=== PATIENT | male | born 1950 | race Caucasian/White ===

== ENCOUNTER 2017-08-22 22:31 | Emergency (ER) | payer BC | END 2017-08-22 22:55 | disposition home or self-care (01) | LOC: ER 22:31 | DX: T63.301A Toxic effect of unspecified spider venom, accidental (unintentional), initial encounter (principal); M79.89 Other specified soft tissue disorders; E78.00 Pure hypercholesterolemia, unspecified; Y92.89 Other specified places as the place of occurrence of the external cause | CPT/HCPCS: 99283 ==

== ENCOUNTER → 2018-01-10 | Outpatient (CLI) | payer BC | END | disposition home or self-care (01) | LOC: RAD 08:18 | DX: M48.02 Spinal stenosis, cervical region (principal); M12.88 Other specific arthropathies, not elsewhere classified, other specified site | CPT/HCPCS: 72040; 73030 ==

== ENCOUNTER 2019-07-06 20:01 | Inpatient (IN) | payer BC ==
[~2019-07-06] VITALS: Ht 185.4 cm; Wt 105.0 kg
[~2019-07-06 20:01] MED LIST: SULF1TAB24 PO
[2019-07-06 20:47] LABS: BASO # 0.1 x10^3/uL (0.0-0.2); BASO % 1 % (0-3); EOS % 1 % (0-3); HEMATOCRIT 45.2 % (39.0-53.0); HEMOGLOBIN 15.4 g/dL (13.0-17.5); LYMPH # 1.2 x10^3/uL (1.0-4.8); LYMPH % 14 % (24-48); MEAN CORPUSCULAR HEMOGLOBIN 29 pg (25-35); MEAN CORPUSCULAR HGB CONC 34 g/dL (31-37); MEAN CORPUSCULAR VOLUME 86 fL (79-100); MONO # 0.5 x10^3/uL (0.0-1.1); MONO % 6 % (0-9); NEUT # 6.7 x10^3/uL (1.8-7.7); NEUT % 80 % (31-73); PLATELET COUNT 199 x10^3/uL (140-400); RED BLOOD COUNT 5.25 x10^6/uL (4.30-5.70); RED CELL DISTRIBUTION WIDTH 13.4 % (11.5-14.5); WHITE BLOOD COUNT 8.5 x10^3/uL (4.0-11.0)
[2019-07-06 20:57] LABS: CALCIUM 8.8 mg/dL (8.5-10.1); CREATININE 0.9 mg/dL (0.7-1.3); GFR 83.9; POTASSIUM 4.2 mmol/L (3.5-5.1)
[2019-07-06 20:58] LABS: PROTHROMBIN TIME PATIENT 12.4 SEC (11.7-14.0)
[2019-07-06 21:02] LABS: ALBUMIN 3.7 g/dL (3.4-5.0); ALBUMIN/GLOBULIN RATIO 1.1 (1.0-1.7); TOTAL BILIRUBIN 0.4 mg/dL (0.2-1.0)
--- NOTE | 2019-07-06 21:34 | RAD ---
PQRS Compliance statement: One or more of the following individualized dose reduction techniques were utilized for this examination: 1. Automated exposure control. 2. Adjustment of the mA and/or kV according to patient size. 3. Use of iterative reconstruction technique. Indication: Altered mental status TECHNIQUE: CT head without IV contrast COMPARISON: None FINDINGS: Moderate sized area of encephalomalacia is seen in the right frontal lobe approximately measuring 4.8 x 5.2 cm. Small area of encephalomalacia in the temporal lobe measuring approximately 4.6 x 2.4 cm. No pathologic extra-axial or intra-axial fluid collection. The ventricles and basal cisterns are within normal limits. No acute intracranial bleed. Orbits are within normal limits. No large scalp hematoma. No suspicious calvarial lesion. Visualized paranasal sinuses and mastoid air cells are clear. 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 Clinically correlate with history. If concern for acute ischemic stroke is high, please consider MRI brain. No acute intracranial bleed. Electronically signed by: Carlitos Caputo DO (07/06/2019 9:31 PM) [facility]
[2019-07-06 23:00] LABS: BILIRUBIN,URINE NEGATIVE (NEG); CLARITY,URINE CLEAR; COLOR,URINE YELLOW; NITRITE,URINE NEGATIVE (NEG); PH,URINE 7.5; PROTEIN,URINE NEGATIVE (NEG-TRACE); UROBILINOGEN,URINE 0.2 mg/dL (0.2 mg/dL)
[2019-07-06 23:05] LABS: BACTERIA,URINE 0 /HPF (0-FEW); RBC,URINE 0 /HPF (0-2); WBC,URINE OCC /HPF (0-4)
--- NOTE | 2019-07-06 23:12 | PHYS DOC ---
Past Medical History Past Medical History: High Cholesterol Past Surgical History: No Surgical History Alcohol Use: None Drug Use: None Adult General Chief Complaint Chief Complaint: HYPERTENSION HPI HPI Patient is a 68 year old was brought here by his for evaluation due to a period of confusion today. His said he was in the closet working on something and when he was done, he came out, he was acting very confused, was talking with her but he did not make any sense. He did not remember what he was doing earlier. EMS was called, they checked him out and he was doing ok but his blood pressure was high so his brought him here for evaluation. Patient denied any history of DM, HTN OR CVA or CAD. He denied any headache or weakness or numbness anywhere at this time. His said he is doing much better now. All other ROS is negative unless otherwise noted in HPI Review of Systems Review of Systems See above Allergies Allergies Allergies Coded Allergies Type Severity Reaction Last Updated Verified No Known Drug Allergies 07/06/19 No Physical Exam Physical Exam See above Constitutional: Well developed, well nourished, no acute distress, non-toxic appearance. [] HENT: Normocephalic, atraumatic, bilateral external ears normal, oropharynx moist, no oral exudates, nose normal. [] Eyes: PERRLA, EOMI, conjunctiva normal, no discharge. [] Neck: Normal range of motion, no tenderness, supple, no stridor. [] Cardiovascular:Heart rate regular rhythm, no murmur [] Lungs & Thorax: Bilateral breath sounds clear to auscultation [] Abdomen: Bowel sounds normal, soft, no tenderness, no masses, no pulsatile masses. [] Skin: Warm, dry, no erythema, no rash. [] Back: No tenderness, no CVA tenderness. [] Extremities: No tenderness, no cyanosis, no clubbing, ROM intact, no edema. [] Neurologic: Alert and oriented X 3, normal motor function, normal sensory function, no focal deficits noted. [] Psychologic: Affect normal, judgement normal, mood normal. [] Current Patient Data Vital Signs Vital Signs Date Time Temp Pulse Resp B/P (MAP) Pulse Ox O2 Delivery O2 Flow Rate FiO2 07/06/19 23:51 99 96 07/06/19 20:10 98.0 16 151/105 (120) 98.0 Lab Values Laboratory Tests Test 07/06/19 20:24 07/06/19 20:40 07/06/19 22:50 Glucose (Fingerstick) 106 mg/dL (70-99) H White Blood Count 8.5 x10^3/uL (4.0-11.0) Red Blood Count 5.25 x10^6/uL (4.30-5.70) Hemoglobin 15.4 g/dL (13.0-17.5) Hematocrit 45.2 % (39.0-53.0) Mean Corpuscular Volume 86 fL (79-100) Mean Corpuscular Hemoglobin 29 pg (25-35) Mean Corpuscular Hemoglobin Concent 34 g/dL (31-37) Red Cell Distribution Width 13.4 % (11.5-14.5) Platelet Count 199 x10^3/uL (140-400) Neutrophils (%) (Auto) 80 % (31-73) H Lymphocytes (%) (Auto) 14 % (24-48) L Monocytes (%) (Auto) 6 % (0-9) Eosinophils (%) (Auto) 1 % (0-3) Basophils (%) (Auto) 1 % (0-3) Neutrophils # (Auto) 6.7 x10^3/uL (1.8-7.7) Lymphocytes # (Auto) 1.2 x10^3/uL (1.0-4.8) Monocytes # (Auto) 0.5 x10^3/uL (0.0-1.1) Eosinophils # (Auto) 0.0 x10^3/uL (0.0-0.7) Basophils # (Auto) 0.1 x10^3/uL (0.0-0.2) Prothrombin Time 12.4 SEC (11.7-14.0) Prothrombin Time INR 1.0 (0.8-1.1) Activated Partial Thromboplast Time 27 SEC (24-38) Sodium Level 136 mmol/L (136-145) Potassium Level 4.2 mmol/L (3.5-5.1) Chloride Level 101 mmol/L (98-107) Carbon Dioxide Level 28 mmol/L (21-32) Anion Gap 7 (6-14) Blood Urea Nitrogen 14 mg/dL (8-26) Creatinine 0.9 mg/dL (0.7-1.3) Estimated GFR (Cockcroft-Gault) 83.9 BUN/Creatinine Ratio 16 (6-20) Glucose Level 115 mg/dL (70-99) H Calcium Level 8.8 mg/dL (8.5-10.1) Magnesium Level 2.0 mg/dL (1.8-2.4) Total Bilirubin 0.4 mg/dL (0.2-1.0) Aspartate Amino Transferase (AST) 35 U/L (15-37) Alanine Aminotransferase (ALT) 57 U/L (16-63) Alkaline Phosphatase 50 U/L (46-116) Troponin I Quantitative 0.124 ng/mL (0.000-0.055) SR-Ssw-F-Type Natriuretic Peptide 35 pg/mL (0-124) Total Protein 7.0 g/dL (6.4-8.2) Albumin 3.7 g/dL (3.4-5.0) Albumin/Globulin Ratio 1.1 (1.0-1.7) Urine Collection Type Unknown Urine Color Yellow Urine Clarity Clear Urine pH 7.5 Urine Specific [place] 1.010 Urine Protein Negative mg/dL (NEG-TRACE) Urine Glucose (UA) Negative mg/dL (NEG) Urine Ketones (Stick) Negative mg/dL (NEG) Urine Blood Negative (NEG) Urine Nitrite Negative (NEG) Urine Bilirubin Negative (NEG) Urine Urobilinogen Dipstick 0.2 mg/dL (0.2 mg/dL) Urine Leukocyte Esterase Negative (NEG) Urine RBC 0 /HPF (0-2) Urine WBC Occ /HPF (0-4) Urine Bacteria 0 /HPF (0-FEW) Urine Mucus Slight /LPF Urine Opiates Screen Neg (NEG) Urine Methadone Screen Neg (NEG) Urine Barbiturates Neg (NEG) Urine Phencyclidine Screen Neg (NEG) Urine Amphetamine/Methamphetamine Neg (NEG) Urine Benzodiazepines Screen Neg (NEG) Urine Cocaine Screen Neg (NEG) Urine Cannabinoids Screen Neg (NEG) Urine Ethyl Alcohol Neg (NEG) Laboratory Tests 07/06/19 20:40 Laboratory Tests 07/06/19 20:40 EKG EKG [] Radiology/Procedures Radiology/Procedures EKG was read by this physician at 2033, rate of 97 BPM, NO STEMI, NSR. [] [facility] [address] [place] [address] IMAGING REPORT Signed PATIENT: LUCRETIA PLUNKETTOUNT: [id number] : 1950 LOCATION: ER AGE: 68 SEX: M EXAM STATUS: REG ER ORD. PHYSICIAN: MARIA EUGENIA MUSA DO REASON: ALTERED MENTAL STATUS PROCEDURE: CT HEAD WO CONTRAST PQRS Compliance statement: One or more of the following individualized dose reduction techniques were utilized for this examination: 1. Automated exposure control. 2. Adjustment of the mA and/or kV according to patient size. 3. Use of iterative reconstruction technique. Indication: Altered mental status TECHNIQUE: CT head without IV contrast COMPARISON: None FINDINGS: Moderate sized area of encephalomalacia is seen in the right frontal lobe approximately measuring 4.8 x 5.2 cm. Small area of encephalomalacia in the temporal lobe measuring approximately 4.6 x 2.4 cm. No pathologic extra-axial or intra-axial fluid collection. The ventricles and basal cisterns are within normal limits. No acute intracranial bleed. Orbits are within normal limits. No large scalp hematoma. No suspicious calvarial lesion. Visualized paranasal sinuses and mastoid air cells are clear. 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 Clinically correlate with history. If concern for acute ischemic stroke is high, please consider MRI brain. No acute intracranial bleed. Electronically signed by: Carlitos Caputo DO (07/06/2019 9:31 PM) [facility] DICTATED and SIGNED BY: CARLITOS CAPUTO DO DATE: 07/06/192130 Course & Med Decision Making Course & Med Decision Making Pertinent Labs and Imaging studies reviewed. (See chart for details) Patient felt much better now, no headache, no chest pain, no shortness of air, no weakness or numbness anywhere. Will admit him for TIA WORK UP AND DUE TO NEW ONSET HTN. Dragon Disclaimer Dragon Disclaimer This electronic medical record was generated, in whole or in part, using a voice recognition dictation system. Departure Departure Impression: Primary Impression: TIA (transient ischemic attack) Additional Impression: HTN (hypertension) Disposition: 09 ADMITTED INPATIENT Admitting Physician: PATIENCE (Dr. CHRISTOMPHER RIFFEL) Condition: IMPROVED Referrals: ZENY NARANJO MD (PCP) Problem Qualifiers MARIA EUGENIA MUSA DO Jul 06, 2019 23:12
[2019-07-06 23:14] LABS: BARBITURATES NEG (NEG); BENZODIAZEPINES NEG (NEG); CANNABINOIDS NEG (NEG); COCAINE NEG (NEG); METHADONE NEG (NEG); OPIATES NEG (NEG); PHENCYCLIDINE NEG (NEG)
[2019-07-06 23:20] LABS: AMPHETAMINE/METHAMPHETAMINE NEG (NEG)
[2019-07-07] MEDS ORDERED: ASPIRIN 325 MG TABLET PO ONE (00:30)
[2019-07-07] MEDS ORDERED: METOPROLOL TART IMMED RELEASE 25 MG TABLET. PO ONE (00:30)
--- NOTE | 2019-07-07 01:32 | NUR ---
PT ADMITTED TO 254 WITH TIA AND HTN. ADMISSION ASSESSMENT COMPLETE, NIHSS-2, PT ALERT THOUGHT PROCESS APPEARS SLOW. CALL LIGHT IN REACH WILL CONT TO MONITOR PT SAFETY AND STATUS. PMRN
[2019-07-07 01:45] VITALS: BP 151/94
[2019-07-07 03:06] VITALS: BP 162/90
--- NOTE | 2019-07-07 06:31 | NUR ---
CALLED CONSULTS FOR DR YU AND DR AMOR, AWAITING RETURN CALL. PMRN
[2019-07-07 07:00] VITALS: BP 132/76
[2019-07-07] MEDS ORDERED: ZOCOR (07:21)
[2019-07-07] MEDS ORDERED: ASPI-630 PO (07:21)
--- NOTE | 2019-07-07 07:30 | EKG ---
[facility] [address] [place] [address] Test Date: 2019-07-06 Test Time: 20:31:09 Pat Name: MAN PLUNKETT Department: Room: Gender: M Supply Person: : 1950 Requested By: MARIA EUGENIA MUSA Order Number: [id number] Reading MD: Measurements Intervals [place] Rate: 97 P: 51 OK: 206 QRS: 0 QRSD: 94 T: 25 QT: 364 QTc: 466 Interpretive Statements SINUS RHYTHM PROLONGED OK INTERVAL LEFTWARD AXIS ABNORMAL ECG No previous ECG available for comparison
--- NOTE | 2019-07-07 09:07 | PDOC1 ---
History and Physical Date of Admission Date of Admission DATE: 07/07/19 TIME: 09:06 Identification/Chief Complaint Chief Complaint TIA sx Source Source: Patient History of Present Illness History of Present Illness Mr Matthews is a 68 yo w/ PMHx BPH, HLD was brought here by his for evaluation due to a period of confusion 07/06/19 His said he was in the closet working on something and when he was done, he came out, he was acting very confused, was talking with her but he did not make any sense. He did not remember what he was doing earlier. EMS was called, they checked him out and he was doing ok but his blood pressure was high so his brought him here for evaluation. Patient denied any history of DM, HTN OR CVA or CAD. He denied any headache or weakness or numbness anywhere at this time. His said he is doing much better now. He notes he was in the closet spraying RAID bug spray with the door closed. CT head revealed concern for prior right frontal and temporal encephalomalacia, but he and his note no hx of CVA previously, so he was admitted for further care with neurology consultation, pending MRI. Given his NIH of 0 there was no tPA administered Past Medical History Cardiovascular: No pertinent hx, Hyperlipidemia Pulmonary: No pertinent hx CENTRAL NERVOUS SYSTEM: CVA, TIA GI: No pertinent hx Heme/Onc: No pertinent hx Hepatobiliary: No pertinent hx Psych: No pertinent hx Rheumatologic: No pertinent hx Infectious disease: No pertinent hx ENT: No pertinent hx Renal/: Benign prostatic enlarg. Endocrine: No pertinent hx Dermatology: No pertinent hx Past Surgical History Past Surgical History: No pertinent history Family History Family History: High Cholestrol, Hypertension Social History Smoke: No ALCOHOL: none Drugs: None Current Problem List Problem List Problems Medical Problems: (1) HTN (hypertension) Status: Acute (2) TIA (transient ischemic attack) Status: Acute Current Medications Current Medications Current Medications Aspirin (Benny Aspirin) 325 mg 1X ONCE PO Last administered on 07/07/19at 00:48; Start 07/07/19 at 00:30; Stop 07/07/19 at 00:31; Status DC Metoprolol Tartrate (Lopressor) 25 mg 1X ONCE PO Last administered on 07/07/19at 00:50; Start 07/07/19 at 00:30; Stop 07/07/19 at 00:31; Status DC Active Scripts Active Bactrim Ds Tablet (Sulfamethoxazole/Trimethoprim) 1 Each Tablet 1 Tab PO BID Reported [Zocor] Aspirin 81 Mg Tab.chew 81 Mg PO DAILY Allergies Allergies: Coded Allergies: No Known Drug Allergies (Unverified , 07/06/19) ROS General: No: Chills, Night Sweats, Fatigue, Malaise, Appetite, Other PSYCHOLOGICAL ROS: No: Anxiety, Behavioral Disorder, Concentration difficultie, Decreased libido, Depression, Disorientation, Hallucinations, Hostility, Irritablity, Memory difficulties, Mood Swings, Obsessive thoughts, Physical abuse, Sexual abuse, Sleep disturbances, Suicidal ideation, Other Eyes: No Blurry vision, No Decreased vision, No Double vision, No Dry eyes, No Excessive tearing, No Eye Pain, No Itchy Eyes, No Loss of vision, No Photophobia, No Scotomata, No Uses contacts, No Uses glasses, No Other HEENT: No: Heacaches, Visual Changes, Hearing change, Nasal congestion, Nasal discharge, Oral lesions, Sinus pain, Sore Throat, Epistaxis, Sneezing, Snoring, Tinnitus, Vertigo, Vocal changes, Other ALLERGY AND IMMUNOLOGY: No: Hives, Insect Bite Sensitivity, Itchy/Watery Eyes, Nasal Congestion, Post Nasal Drip, Seasonal Allergies, Other Hematological and Lymphatic: No: Bleeding Problems, Blood Clots, Blood Transfusions, Brusing, Night Sweats, Pallor, Swollen Lymph Nodes, Other ENDOCRINE: No: Breast Changes, Galactorrhea, Hair Pattern Changes, Hot Flashes, Malaise/lethargy, Mood Swings, Palpitations, Polydipsia/polyuria, Skin Changes, Temperature Intolerance, Unexpected Weight Changes, Other Breast: No New/Changing Breast Lumps, No Nipple changes, No Nipple discharge, No Other Respiratory: No: Cough, Hemoptysis, Orthopnea, Pleuritic Pain, Shortness of breath, SOB with excertion, Sputum Changes, Stridor, Tachypnea, Wheezing, Other Cardiovascular: No Chest Pain, No Palpitations, No Orthopnea, No Paroxysmal Noc. Dyspnea, No Edema, No Lt Headedness, No Other Gastrointestinal: No Nausea, No Vomiting, No Abdominal Pain, No Diarrhea, No Constipation, No Melena, No Hematochezia, No Other Genitourinary: No Dysuria, No Frequency, No Incontinence, No Hematuria, No Retention, No Discharge, No Urgency, No Pain, No Flank Pain, No Other, No , No , No , No , No , No , No Musculoskeletal: No Gait Disturbance, No Joint Pain, No Joint Stiffness, No Joint Swelling, No Muscle Pain, No Muscular Weakness, No Pain In:, No Swelling In:, No Other Neurological: No Behavorial Changes, No Bowel/Bladder ControlChng, No Confusion, No Dizziness, No Gait Disturbance, No Headaches, No Impaired Coord/balance, No Memory Loss, No Numbness/Tingling, No Seizures, No Speech Problems, No Tremors, No Visual Changes, No Weakness, No Other Skin: No Dry Skin, No Eczema, No Hair Changes, No Lumps, No Mole Changes, No Mottling, No Nail Changes, No Pruritus, No Rash, No Skin Lesion Changes, No Other, No Acne Physical Exam General: Alert, Oriented X3, Cooperative, No acute distress HEENT: Atraumatic, PERRLA, EOMI, Mucous membr. moist/pink Lungs: Clear to auscultation, Normal air movement Heart: S1S2, RRR, no thrills, no rubs, no gallops, no murmurs Abdomen: Normal bowel sounds, Soft, No tenderness, No hepatosplenomegaly, No masses Rectal Exam: not examined Extremities: No clubbing, No cyanosis, No edema, Normal pulses, No tenderness/swelling Skin: No rashes, No breakdown, No significant lesion Neuro: Normal gait, Normal speech, Strength at 5/5 X4 ext, Normal tone, Sensation intact, Cranial nerves 3-12 NL, Reflexes 2+ Psych/Mental Status: Mental status NL, Mood NL Vitals Vitals Vital Signs Date Time Temp Pulse Resp B/P (MAP) Pulse Ox O2 Delivery O2 Flow Rate FiO2 07/07/19 07:00 97.6 99 20 132/76 (94) 91 Room Air 97.6 Labs Labs Laboratory Tests Test 07/06/19 20:24 07/06/19 20:40 07/06/19 22:50 07/07/19 03:30 Glucose (Fingerstick) 106 mg/dL (70-99) White Blood Count 8.5 x10^3/uL (4.0-11.0) Red Blood Count 5.25 x10^6/uL (4.30-5.70) Hemoglobin 15.4 g/dL (13.0-17.5) Hematocrit 45.2 % (39.0-53.0) Mean Corpuscular Volume 86 fL (79-100) Mean Corpuscular Hemoglobin 29 pg (25-35) Mean Corpuscular Hemoglobin Concent 34 g/dL (31-37) Red Cell Distribution Width 13.4 % (11.5-14.5) Platelet Count 199 x10^3/uL (140-400) Neutrophils (%) (Auto) 80 % (31-73) Lymphocytes (%) (Auto) 14 % (24-48) Monocytes (%) (Auto) 6 % (0-9) Eosinophils (%) (Auto) 1 % (0-3) Basophils (%) (Auto) 1 % (0-3) Neutrophils # (Auto) 6.7 x10^3/uL (1.8-7.7) Lymphocytes # (Auto) 1.2 x10^3/uL (1.0-4.8) Monocytes # (Auto) 0.5 x10^3/uL (0.0-1.1) Eosinophils # (Auto) 0.0 x10^3/uL (0.0-0.7) Basophils # (Auto) 0.1 x10^3/uL (0.0-0.2) Prothrombin Time 12.4 SEC (11.7-14.0) Prothromb Time International Ratio 1.0 (0.8-1.1) Activated Partial Thromboplast Time 27 SEC (24-38) Sodium Level 136 mmol/L (136-145) Potassium Level 4.2 mmol/L (3.5-5.1) Chloride Level 101 mmol/L (98-107) Carbon Dioxide Level 28 mmol/L (21-32) Anion Gap 7 (6-14) Blood Urea Nitrogen 14 mg/dL (8-26) Creatinine 0.9 mg/dL (0.7-1.3) Estimated GFR (Cockcroft-Gault) 83.9 BUN/Creatinine Ratio 16 (6-20) Glucose Level 115 mg/dL (70-99) Calcium Level 8.8 mg/dL (8.5-10.1) Magnesium Level 2.0 mg/dL (1.8-2.4) Total Bilirubin 0.4 mg/dL (0.2-1.0) Aspartate Amino Transf (AST/SGOT) 35 U/L (15-37) Alanine Aminotransferase (ALT/SGPT) 57 U/L (16-63) Alkaline Phosphatase 50 U/L (46-116) Troponin I Quantitative 0.124 ng/mL (0.000-0.055) 0.134 ng/mL (0.000-0.055) MX-Ofi-K-Type Natriuretic Peptide 35 pg/mL (0-124) Total Protein 7.0 g/dL (6.4-8.2) Albumin 3.7 g/dL (3.4-5.0) Albumin/Globulin Ratio 1.1 (1.0-1.7) Urine Collection Type Unknown Urine Color Yellow Urine Clarity Clear Urine pH 7.5 Urine Specific [place] 1.010 Urine Protein Negative mg/dL (NEG-TRACE) Urine Glucose (UA) Negative mg/dL (NEG) Urine Ketones (Stick) Negative mg/dL (NEG) Urine Blood Negative (NEG) Urine Nitrite Negative (NEG) Urine Bilirubin Negative (NEG) Urine Urobilinogen Dipstick 0.2 mg/dL (0.2 mg/dL) Urine Leukocyte Esterase Negative (NEG) Urine RBC 0 /HPF (0-2) Urine WBC Occ /HPF (0-4) Urine Bacteria 0 /HPF (0-FEW) Urine Mucus Slight /LPF Urine Opiates Screen Neg (NEG) Urine Methadone Screen Neg (NEG) Urine Barbiturates Neg (NEG) Urine Phencyclidine Screen Neg (NEG) Urine Amphetamine/Methamphetamine Neg (NEG) Urine Benzodiazepines Screen Neg (NEG) Urine Cocaine Screen Neg (NEG) Urine Cannabinoids Screen Neg (NEG) Urine Ethyl Alcohol Neg (NEG) Thyroid Stimulating Hormone (TSH) 4.009 uIU/mL (0.358-3.74) Laboratory Tests Test 07/06/19 20:24 07/06/19 20:40 07/06/19 22:50 07/07/19 03:30 Glucose (Fingerstick) 106 mg/dL (70-99) White Blood Count 8.5 x10^3/uL (4.0-11.0) Red Blood Count 5.25 x10^6/uL (4.30-5.70) Hemoglobin 15.4 g/dL (13.0-17.5) Hematocrit 45.2 % (39.0-53.0) Mean Corpuscular Volume 86 fL (79-100) Mean Corpuscular Hemoglobin 29 pg (25-35) Mean Corpuscular Hemoglobin Concent 34 g/dL (31-37) Red Cell Distribution Width 13.4 % (11.5-14.5) Platelet Count 199 x10^3/uL (140-400) Neutrophils (%) (Auto) 80 % (31-73) Lymphocytes (%) (Auto) 14 % (24-48) Monocytes (%) (Auto) 6 % (0-9) Eosinophils (%) (Auto) 1 % (0-3) Basophils (%) (Auto) 1 % (0-3) Neutrophils # (Auto) 6.7 x10^3/uL (1.8-7.7) Lymphocytes # (Auto) 1.2 x10^3/uL (1.0-4.8) Monocytes # (Auto) 0.5 x10^3/uL (0.0-1.1) Eosinophils # (Auto) 0.0 x10^3/uL (0.0-0.7) Basophils # (Auto) 0.1 x10^3/uL (0.0-0.2) Prothrombin Time 12.4 SEC (11.7-14.0) Prothromb Time International Ratio 1.0 (0.8-1.1) Activated Partial Thromboplast Time 27 SEC (24-38) Sodium Level 136 mmol/L (136-145) Potassium Level 4.2 mmol/L (3.5-5.1) Chloride Level 101 mmol/L (98-107) Carbon Dioxide Level 28 mmol/L (21-32) Anion Gap 7 (6-14) Blood Urea Nitrogen 14 mg/dL (8-26) Creatinine 0.9 mg/dL (0.7-1.3) Estimated GFR (Cockcroft-Gault) 83.9 BUN/Creatinine Ratio 16 (6-20) Glucose Level 115 mg/dL (70-99) Calcium Level 8.8 mg/dL (8.5-10.1) Magnesium Level 2.0 mg/dL (1.8-2.4) Total Bilirubin 0.4 mg/dL (0.2-1.0) Aspartate Amino Transf (AST/SGOT) 35 U/L (15-37) Alanine Aminotransferase (ALT/SGPT) 57 U/L (16-63) Alkaline Phosphatase 50 U/L (46-116) Troponin I Quantitative 0.124 ng/mL (0.000-0.055) 0.134 ng/mL (0.000-0.055) LU-Dyt-E-Type Natriuretic Peptide 35 pg/mL (0-124) Total Protein 7.0 g/dL (6.4-8.2) Albumin 3.7 g/dL (3.4-5.0) Albumin/Globulin Ratio 1.1 (1.0-1.7) Urine Collection Type Unknown Urine Color Yellow Urine Clarity Clear Urine pH 7.5 Urine Specific [place] 1.010 Urine Protein Negative mg/dL (NEG-TRACE) Urine Glucose (UA) Negative mg/dL (NEG) Urine Ketones (Stick) Negative mg/dL (NEG) Urine Blood Negative (NEG) Urine Nitrite Negative (NEG) Urine Bilirubin Negative (NEG) Urine Urobilinogen Dipstick 0.2 mg/dL (0.2 mg/dL) Urine Leukocyte Esterase Negative (NEG) Urine RBC 0 /HPF (0-2) Urine WBC Occ /HPF (0-4) Urine Bacteria 0 /HPF (0-FEW) Urine Mucus Slight /LPF Urine Opiates Screen Neg (NEG) Urine Methadone Screen Neg (NEG) Urine Barbiturates Neg (NEG) Urine Phencyclidine Screen Neg (NEG) Urine Amphetamine/Methamphetamine Neg (NEG) Urine Benzodiazepines Screen Neg (NEG) Urine Cocaine Screen Neg (NEG) Urine Cannabinoids Screen Neg (NEG) Urine Ethyl Alcohol Neg (NEG) Thyroid Stimulating Hormone (TSH) 4.009 uIU/mL (0.358-3.74) Images Images CT head - Moderate sized area of encephalomalacia is seen in the right frontal lobe approximately measuring 4.8 x 5.2 cm. Small area of encephalomalacia in the temporal lobe measuring approximately 4.6 x 2.4 cm. No pathologic extra-axial or intra-axial fluid collection. The ventricles and basal cisterns are within normal limits. No acute intracranial bleed. Orbits are within normal limits. No large scalp hematoma. No suspicious calvarial lesion. Visualized paranasal sinuses and mastoid air cells are clear. 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 Clinically correlate with history. If concern for acute ischemic stroke is high, please consider MRI brain. No acute intracranial bleed. MRI - No acute infarct. No intracranial hemorrhage. No mass effect. Right frontal and anterior temporal encephalomalacia with adjacent gliosis. Mild global brain parenchymal volume loss. Moderate cerebellar volume loss. Additional punctate foci of T/FLAIR hyperintensities within the hemispheric white matter, likely within normal range for age. Imaged orbits are unremarkable. Minimal scattered paranasal sinus mucosal thickening. Mastoid air cells are clear. Impression: 1. No acute intracranial abnormality. 2. Right frontal and anterior temporal lobe encephalomalacia unchanged. 3. Mild cerebral and moderate cerebellar volume loss. VTE Prophylaxis Ordered VTE Prophylaxis Devices: No VTE Pharmacological Prophylaxi: No Assessment/Plan Assessment/Plan A/P: Acute encephalopathy - likely 2/2 organophosphate/bug spray toxicity with his HTN and short lived side effects. Concern for prior CVA noted, discussed with family. Will await MRI results d/w with neurology. ASA and high intensity statin therapy BPH - cont meds HLD - cont statin Elevated blood pressure without diagnosis of hypertension - monitor Right frontal and temporal encephalomalacia - likely prior CVA, d/w him and his . Cont ASA and statin FEN - General diet PPX - SCDs FULL CODE Dispo - inpatient for assessment of CVA syndrome VARSHA COLEMAN MD Jul 07, 2019 09:07
--- NOTE | 2019-07-07 09:23 | PDOC2 ---
NEUROLOGY CONSULT Date of Admission Date of Admission DATE: 07/07/19 TIME: 09:18 Reason for Consult Reason for Consult: Possible stroke Referring Physician Referring Physician: Dr. Mckeon Source Source: Chart review, Patient History of Present Illness History of Present Illness The patient is 68-year-old right-handed male who felt confused yesterday. Blood pressure was 151/94 in the emergency department. He feels fine now. Is no history of stroke, seizure, head injury. No focal findings were documented. Past Medical History Cardiovascular: Hyperlipidemia GI: GERD Past Surgical History Past Surgical History: No pertinent history Family History Family History: CAD Social History Social History , retired, ex-smoker, rare alcohol Current Medications Current Medications Current Medications Aspirin (Benny Aspirin) 325 mg 1X ONCE PO Last administered on 07/07/19at 00:48; Start 07/07/19 at 00:30; Stop 07/07/19 at 00:31; Status DC Metoprolol Tartrate (Lopressor) 25 mg 1X ONCE PO Last administered on 07/07/19at 00:50; Start 07/07/19 at 00:30; Stop 07/07/19 at 00:31; Status DC Active Scripts Active Bactrim Ds Tablet (Sulfamethoxazole/Trimethoprim) 1 Each Tablet 1 Tab PO BID Reported [Zocor] Aspirin 81 Mg Tab.chew 81 Mg PO DAILY Allergies Allergies: Coded Allergies: No Known Drug Allergies (Unverified , 07/06/19) ROS Review of System Negative for fever, chills, weight loss, shortness of breath, chest pain, indigestion, hematochezia, melena, and dysuria. Full 14-point review of systems is negative. Physical Exam Physical Examination General: Well-developed, well-nourished white male in no acute distress HEENT: Normocephalic andatraumatic.Temporal arteriespulsatile and nontender. Neck: Supple without bruit, no meningismus Musculoskeletal: Stability:see neurologic. Gait exam:see neurologic. Tone:see neurologic.Strength:see neurologic. Neurological: Mental Status:intact, orientation, memory, attention span/concentration, language, fund of knowledge normal, but poor recall for yesterday's events. Cranial Nerves:Pupils equal and reactive to light, extraocular movements areintact, visual gutierrez are full to confrontation. Facial sensation is normal. There is no facial asymmetry. Vestibulo-ocular reflex is intact. Palate elevates and tongue protrudes in midline. All other cranial related problems are negative except as mentioned before.Reflexes:2+ and symmetric with flexor plantar responses. Motor:5/5 strength with normal tone and bulk. Coordination:Finger-nose finger and gcnb-rw-hddn testing are normal. Rapid alternating movements and fine finger movements are intact. Gait:Normal, including tandem. Sensory:Normal pinprick, vibration, light touch, proprioception. Vitals VITALS Vital Signs Date Time Temp Pulse Resp B/P (MAP) Pulse Ox O2 Delivery O2 Flow Rate FiO2 07/07/19 07:00 97.6 99 20 132/76 (94) 91 Room Air 97.6 Labs Labs Laboratory Tests Test 07/06/19 20:24 07/06/19 20:40 07/06/19 22:50 07/07/19 03:30 Glucose (Fingerstick) 106 mg/dL (70-99) White Blood Count 8.5 x10^3/uL (4.0-11.0) Red Blood Count 5.25 x10^6/uL (4.30-5.70) Hemoglobin 15.4 g/dL (13.0-17.5) Hematocrit 45.2 % (39.0-53.0) Mean Corpuscular Volume 86 fL (79-100) Mean Corpuscular Hemoglobin 29 pg (25-35) Mean Corpuscular Hemoglobin Concent 34 g/dL (31-37) Red Cell Distribution Width 13.4 % (11.5-14.5) Platelet Count 199 x10^3/uL (140-400) Neutrophils (%) (Auto) 80 % (31-73) Lymphocytes (%) (Auto) 14 % (24-48) Monocytes (%) (Auto) 6 % (0-9) Eosinophils (%) (Auto) 1 % (0-3) Basophils (%) (Auto) 1 % (0-3) Neutrophils # (Auto) 6.7 x10^3/uL (1.8-7.7) Lymphocytes # (Auto) 1.2 x10^3/uL (1.0-4.8) Monocytes # (Auto) 0.5 x10^3/uL (0.0-1.1) Eosinophils # (Auto) 0.0 x10^3/uL (0.0-0.7) Basophils # (Auto) 0.1 x10^3/uL (0.0-0.2) Prothrombin Time 12.4 SEC (11.7-14.0) Prothromb Time International Ratio 1.0 (0.8-1.1) Activated Partial Thromboplast Time 27 SEC (24-38) Sodium Level 136 mmol/L (136-145) Potassium Level 4.2 mmol/L (3.5-5.1) Chloride Level 101 mmol/L (98-107) Carbon Dioxide Level 28 mmol/L (21-32) Anion Gap 7 (6-14) Blood Urea Nitrogen 14 mg/dL (8-26) Creatinine 0.9 mg/dL (0.7-1.3) Estimated GFR (Cockcroft-Gault) 83.9 BUN/Creatinine Ratio 16 (6-20) Glucose Level 115 mg/dL (70-99) Calcium Level 8.8 mg/dL (8.5-10.1) Magnesium Level 2.0 mg/dL (1.8-2.4) Total Bilirubin 0.4 mg/dL (0.2-1.0) Aspartate Amino Transf (AST/SGOT) 35 U/L (15-37) Alanine Aminotransferase (ALT/SGPT) 57 U/L (16-63) Alkaline Phosphatase 50 U/L (46-116) Troponin I Quantitative 0.124 ng/mL (0.000-0.055) 0.134 ng/mL (0.000-0.055) GE-Hrt-B-Type Natriuretic Peptide 35 pg/mL (0-124) Total Protein 7.0 g/dL (6.4-8.2) Albumin 3.7 g/dL (3.4-5.0) Albumin/Globulin Ratio 1.1 (1.0-1.7) Urine Collection Type Unknown Urine Color Yellow Urine Clarity Clear Urine pH 7.5 Urine Specific [place] 1.010 Urine Protein Negative mg/dL (NEG-TRACE) Urine Glucose (UA) Negative mg/dL (NEG) Urine Ketones (Stick) Negative mg/dL (NEG) Urine Blood Negative (NEG) Urine Nitrite Negative (NEG) Urine Bilirubin Negative (NEG) Urine Urobilinogen Dipstick 0.2 mg/dL (0.2 mg/dL) Urine Leukocyte Esterase Negative (NEG) Urine RBC 0 /HPF (0-2) Urine WBC Occ /HPF (0-4) Urine Bacteria 0 /HPF (0-FEW) Urine Mucus Slight /LPF Urine Opiates Screen Neg (NEG) Urine Methadone Screen Neg (NEG) Urine Barbiturates Neg (NEG) Urine Phencyclidine Screen Neg (NEG) Urine Amphetamine/Methamphetamine Neg (NEG) Urine Benzodiazepines Screen Neg (NEG) Urine Cocaine Screen Neg (NEG) Urine Cannabinoids Screen Neg (NEG) Urine Ethyl Alcohol Neg (NEG) Thyroid Stimulating Hormone (TSH) 4.009 uIU/mL (0.358-3.74) Laboratory Tests Test 07/06/19 20:24 07/06/19 20:40 07/06/19 22:50 07/07/19 03:30 Glucose (Fingerstick) 106 mg/dL (70-99) White Blood Count 8.5 x10^3/uL (4.0-11.0) Red Blood Count 5.25 x10^6/uL (4.30-5.70) Hemoglobin 15.4 g/dL (13.0-17.5) Hematocrit 45.2 % (39.0-53.0) Mean Corpuscular Volume 86 fL (79-100) Mean Corpuscular Hemoglobin 29 pg (25-35) Mean Corpuscular Hemoglobin Concent 34 g/dL (31-37) Red Cell Distribution Width 13.4 % (11.5-14.5) Platelet Count 199 x10^3/uL (140-400) Neutrophils (%) (Auto) 80 % (31-73) Lymphocytes (%) (Auto) 14 % (24-48) Monocytes (%) (Auto) 6 % (0-9) Eosinophils (%) (Auto) 1 % (0-3) Basophils (%) (Auto) 1 % (0-3) Neutrophils # (Auto) 6.7 x10^3/uL (1.8-7.7) Lymphocytes # (Auto) 1.2 x10^3/uL (1.0-4.8) Monocytes # (Auto) 0.5 x10^3/uL (0.0-1.1) Eosinophils # (Auto) 0.0 x10^3/uL (0.0-0.7) Basophils # (Auto) 0.1 x10^3/uL (0.0-0.2) Prothrombin Time 12.4 SEC (11.7-14.0) Prothromb Time International Ratio 1.0 (0.8-1.1) Activated Partial Thromboplast Time 27 SEC (24-38) Sodium Level 136 mmol/L (136-145) Potassium Level 4.2 mmol/L (3.5-5.1) Chloride Level 101 mmol/L (98-107) Carbon Dioxide Level 28 mmol/L (21-32) Anion Gap 7 (6-14) Blood Urea Nitrogen 14 mg/dL (8-26) Creatinine 0.9 mg/dL (0.7-1.3) Estimated GFR (Cockcroft-Gault) 83.9 BUN/Creatinine Ratio 16 (6-20) Glucose Level 115 mg/dL (70-99) Calcium Level 8.8 mg/dL (8.5-10.1) Magnesium Level 2.0 mg/dL (1.8-2.4) Total Bilirubin 0.4 mg/dL (0.2-1.0) Aspartate Amino Transf (AST/SGOT) 35 U/L (15-37) Alanine Aminotransferase (ALT/SGPT) 57 U/L (16-63) Alkaline Phosphatase 50 U/L (46-116) Troponin I Quantitative 0.124 ng/mL (0.000-0.055) 0.134 ng/mL (0.000-0.055) CH-Ehu-Y-Type Natriuretic Peptide 35 pg/mL (0-124) Total Protein 7.0 g/dL (6.4-8.2) Albumin 3.7 g/dL (3.4-5.0) Albumin/Globulin Ratio 1.1 (1.0-1.7) Urine Collection Type Unknown Urine Color Yellow Urine Clarity Clear Urine pH 7.5 Urine Specific [place] 1.010 Urine Protein Negative mg/dL (NEG-TRACE) Urine Glucose (UA) Negative mg/dL (NEG) Urine Ketones (Stick) Negative mg/dL (NEG) Urine Blood Negative (NEG) Urine Nitrite Negative (NEG) Urine Bilirubin Negative (NEG) Urine Urobilinogen Dipstick 0.2 mg/dL (0.2 mg/dL) Urine Leukocyte Esterase Negative (NEG) Urine RBC 0 /HPF (0-2) Urine WBC Occ /HPF (0-4) Urine Bacteria 0 /HPF (0-FEW) Urine Mucus Slight /LPF Urine Opiates Screen Neg (NEG) Urine Methadone Screen Neg (NEG) Urine Barbiturates Neg (NEG) Urine Phencyclidine Screen Neg (NEG) Urine Amphetamine/Methamphetamine Neg (NEG) Urine Benzodiazepines Screen Neg (NEG) Urine Cocaine Screen Neg (NEG) Urine Cannabinoids Screen Neg (NEG) Urine Ethyl Alcohol Neg (NEG) Thyroid Stimulating Hormone (TSH) 4.009 uIU/mL (0.358-3.74) Images Images CT head without IV contrast COMPARISON: None FINDINGS: Moderate sized area of encephalomalacia is seen in the right frontal lobe approximately measuring 4.8 x 5.2 cm. Small area of encephalomalacia in the temporal lobe measuring approximately 4.6 x 2.4 cm. No pathologic extra-axial or intra-axial fluid collection. The ventricles and basal cisterns are within normal limits. No acute intracranial bleed. Orbits are within normal limits. No large scalp hematoma. No suspicious calvarial lesion. Visualized paranasal sinuses and mastoid air cells are clear. 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 Clinically correlate with history. If concern for acute ischemic stroke is high, please consider MRI brain. No acute intracranial bleed. Assessment/Plan Assessment/Plan Impression: Hypertensive encephalopathy, no sign of acute stroke, also consider transient global amnesia. Right frontotemporal encephalomalacia Recommendations: antihypertensives Aspirin, he has Jose been on this MRI the brain Further stroke evaluation only if MRI positive Okay for discharge of MRI negative Follow-up with neurology as needed. Thank you for letting me help the patient's care. THOR MERCADO MD Jul 07, 2019 09:22
[2019-07-07 11:00] VITALS: BP 151/77
--- NOTE | 2019-07-07 11:08 | RAD ---
BRAIN W/O CONTRAST History: Hypertensive encephalopathy. Technique: Multiplanar, multi sequential MR imaging was performed of the brain without contrast. Comparison: Head CT July 06, 2019. Findings: No acute infarct. No intracranial hemorrhage. No mass effect. Right frontal and anterior temporal encephalomalacia with adjacent gliosis. Mild global brain parenchymal volume loss. Moderate cerebellar volume loss. Additional punctate foci of T/FLAIR hyperintensities within the hemispheric white matter, likely within normal range for age. Imaged orbits are unremarkable. Minimal scattered paranasal sinus mucosal thickening. Mastoid air cells are clear. Impression: 1. No acute intracranial abnormality. 2. Right frontal and anterior temporal lobe encephalomalacia unchanged. 3. Mild cerebral and moderate cerebellar volume loss. Electronically signed by: Han Hankins DO (07/07/2019 11:05 AM) [facility] [id number]
[2019-07-07] MEDS ORDERED: MELO15TA23 PO (11:09)
[2019-07-07] MEDS ORDERED: FINA5TAB4 PO (11:09)
[2019-07-07] MEDS ORDERED: CRESTOR40 MG PO (11:09)
[2019-07-07] MEDS ORDERED: TAMS0.4C97 PO (11:09)
--- NOTE | 2019-07-07 11:25 | NUR ---
SS following for discharge planning. SS reviewed pt chart. Pt is from home with spouse and is currently on room air. SS will continue to follow for discharge planning.
[2019-07-07] MEDS ORDERED: TAMSULOSIN 0.4 MG CAP.ER.24H. PO SCH (11:30)
[2019-07-07] MEDS ORDERED: FINASTERIDE 5 MG TABLET. PO SCH (11:30)
--- NOTE | 2019-07-07 11:34 | PDOC3 ---
Discharge Summary Visit Information Date of Admission: Jul 07, 2019 Date of Discharge: Jul 07, 2019 Admitting Diagnosis: Acute encephalopathy Final Diagnosis Problems Medical Problems: (1) HTN (hypertension) Status: Acute (2) TIA (transient ischemic attack) Status: Acute Brief Hospital Course Allergies Allergies Coded Allergies Type Severity Reaction Last Updated Verified No Known Drug Allergies 07/06/19 No Vital Signs Vital Signs Date Time Temp Pulse Resp B/P (MAP) Pulse Ox O2 Delivery O2 Flow Rate FiO2 07/07/19 08:00 Room Air 07/07/19 07:00 97.6 99 20 132/76 (94) 91 97.6 Lab Results Laboratory Tests Test 07/06/19 20:24 07/06/19 20:40 07/06/19 22:50 07/07/19 03:30 Glucose (Fingerstick) 106 mg/dL (70-99) White Blood Count 8.5 x10^3/uL (4.0-11.0) Red Blood Count 5.25 x10^6/uL (4.30-5.70) Hemoglobin 15.4 g/dL (13.0-17.5) Hematocrit 45.2 % (39.0-53.0) Mean Corpuscular Volume 86 fL (79-100) Mean Corpuscular Hemoglobin 29 pg (25-35) Mean Corpuscular Hemoglobin Concent 34 g/dL (31-37) Red Cell Distribution Width 13.4 % (11.5-14.5) Platelet Count 199 x10^3/uL (140-400) Neutrophils (%) (Auto) 80 % (31-73) Lymphocytes (%) (Auto) 14 % (24-48) Monocytes (%) (Auto) 6 % (0-9) Eosinophils (%) (Auto) 1 % (0-3) Basophils (%) (Auto) 1 % (0-3) Neutrophils # (Auto) 6.7 x10^3/uL (1.8-7.7) Lymphocytes # (Auto) 1.2 x10^3/uL (1.0-4.8) Monocytes # (Auto) 0.5 x10^3/uL (0.0-1.1) Eosinophils # (Auto) 0.0 x10^3/uL (0.0-0.7) Basophils # (Auto) 0.1 x10^3/uL (0.0-0.2) Prothrombin Time 12.4 SEC (11.7-14.0) Prothromb Time International Ratio 1.0 (0.8-1.1) Activated Partial Thromboplast Time 27 SEC (24-38) Sodium Level 136 mmol/L (136-145) Potassium Level 4.2 mmol/L (3.5-5.1) Chloride Level 101 mmol/L (98-107) Carbon Dioxide Level 28 mmol/L (21-32) Anion Gap 7 (6-14) Blood Urea Nitrogen 14 mg/dL (8-26) Creatinine 0.9 mg/dL (0.7-1.3) Estimated GFR (Cockcroft-Gault) 83.9 BUN/Creatinine Ratio 16 (6-20) Glucose Level 115 mg/dL (70-99) Calcium Level 8.8 mg/dL (8.5-10.1) Magnesium Level 2.0 mg/dL (1.8-2.4) Total Bilirubin 0.4 mg/dL (0.2-1.0) Aspartate Amino Transf (AST/SGOT) 35 U/L (15-37) Alanine Aminotransferase (ALT/SGPT) 57 U/L (16-63) Alkaline Phosphatase 50 U/L (46-116) Troponin I Quantitative 0.124 ng/mL (0.000-0.055) 0.134 ng/mL (0.000-0.055) EC-Szh-W-Type Natriuretic Peptide 35 pg/mL (0-124) Total Protein 7.0 g/dL (6.4-8.2) Albumin 3.7 g/dL (3.4-5.0) Albumin/Globulin Ratio 1.1 (1.0-1.7) Urine Collection Type Unknown Urine Color Yellow Urine Clarity Clear Urine pH 7.5 Urine Specific [place] 1.010 Urine Protein Negative mg/dL (NEG-TRACE) Urine Glucose (UA) Negative mg/dL (NEG) Urine Ketones (Stick) Negative mg/dL (NEG) Urine Blood Negative (NEG) Urine Nitrite Negative (NEG) Urine Bilirubin Negative (NEG) Urine Urobilinogen Dipstick 0.2 mg/dL (0.2 mg/dL) Urine Leukocyte Esterase Negative (NEG) Urine RBC 0 /HPF (0-2) Urine WBC Occ /HPF (0-4) Urine Bacteria 0 /HPF (0-FEW) Urine Mucus Slight /LPF Urine Opiates Screen Neg (NEG) Urine Methadone Screen Neg (NEG) Urine Barbiturates Neg (NEG) Urine Phencyclidine Screen Neg (NEG) Urine Amphetamine/Methamphetamine Neg (NEG) Urine Benzodiazepines Screen Neg (NEG) Urine Cocaine Screen Neg (NEG) Urine Cannabinoids Screen Neg (NEG) Urine Ethyl Alcohol Neg (NEG) Thyroid Stimulating Hormone (TSH) 4.009 uIU/mL (0.358-3.74) Laboratory Tests Test 07/06/19 20:24 07/06/19 20:40 07/06/19 22:50 07/07/19 03:30 Glucose (Fingerstick) 106 mg/dL (70-99) White Blood Count 8.5 x10^3/uL (4.0-11.0) Red Blood Count 5.25 x10^6/uL (4.30-5.70) Hemoglobin 15.4 g/dL (13.0-17.5) Hematocrit 45.2 % (39.0-53.0) Mean Corpuscular Volume 86 fL (79-100) Mean Corpuscular Hemoglobin 29 pg (25-35) Mean Corpuscular Hemoglobin Concent 34 g/dL (31-37) Red Cell Distribution Width 13.4 % (11.5-14.5) Platelet Count 199 x10^3/uL (140-400) Neutrophils (%) (Auto) 80 % (31-73) Lymphocytes (%) (Auto) 14 % (24-48) Monocytes (%) (Auto) 6 % (0-9) Eosinophils (%) (Auto) 1 % (0-3) Basophils (%) (Auto) 1 % (0-3) Neutrophils # (Auto) 6.7 x10^3/uL (1.8-7.7) Lymphocytes # (Auto) 1.2 x10^3/uL (1.0-4.8) Monocytes # (Auto) 0.5 x10^3/uL (0.0-1.1) Eosinophils # (Auto) 0.0 x10^3/uL (0.0-0.7) Basophils # (Auto) 0.1 x10^3/uL (0.0-0.2) Prothrombin Time 12.4 SEC (11.7-14.0) Prothromb Time International Ratio 1.0 (0.8-1.1) Activated Partial Thromboplast Time 27 SEC (24-38) Sodium Level 136 mmol/L (136-145) Potassium Level 4.2 mmol/L (3.5-5.1) Chloride Level 101 mmol/L (98-107) Carbon Dioxide Level 28 mmol/L (21-32) Anion Gap 7 (6-14) Blood Urea Nitrogen 14 mg/dL (8-26) Creatinine 0.9 mg/dL (0.7-1.3) Estimated GFR (Cockcroft-Gault) 83.9 BUN/Creatinine Ratio 16 (6-20) Glucose Level 115 mg/dL (70-99) Calcium Level 8.8 mg/dL (8.5-10.1) Magnesium Level 2.0 mg/dL (1.8-2.4) Total Bilirubin 0.4 mg/dL (0.2-1.0) Aspartate Amino Transf (AST/SGOT) 35 U/L (15-37) Alanine Aminotransferase (ALT/SGPT) 57 U/L (16-63) Alkaline Phosphatase 50 U/L (46-116) Troponin I Quantitative 0.124 ng/mL (0.000-0.055) 0.134 ng/mL (0.000-0.055) HS-Ylq-C-Type Natriuretic Peptide 35 pg/mL (0-124) Total Protein 7.0 g/dL (6.4-8.2) Albumin 3.7 g/dL (3.4-5.0) Albumin/Globulin Ratio 1.1 (1.0-1.7) Urine Collection Type Unknown Urine Color Yellow Urine Clarity Clear Urine pH 7.5 Urine Specific [place] 1.010 Urine Protein Negative mg/dL (NEG-TRACE) Urine Glucose (UA) Negative mg/dL (NEG) Urine Ketones (Stick) Negative mg/dL (NEG) Urine Blood Negative (NEG) Urine Nitrite Negative (NEG) Urine Bilirubin Negative (NEG) Urine Urobilinogen Dipstick 0.2 mg/dL (0.2 mg/dL) Urine Leukocyte Esterase Negative (NEG) Urine RBC 0 /HPF (0-2) Urine WBC Occ /HPF (0-4) Urine Bacteria 0 /HPF (0-FEW) Urine Mucus Slight /LPF Urine Opiates Screen Neg (NEG) Urine Methadone Screen Neg (NEG) Urine Barbiturates Neg (NEG) Urine Phencyclidine Screen Neg (NEG) Urine Amphetamine/Methamphetamine Neg (NEG) Urine Benzodiazepines Screen Neg (NEG) Urine Cocaine Screen Neg (NEG) Urine Cannabinoids Screen Neg (NEG) Urine Ethyl Alcohol Neg (NEG) Thyroid Stimulating Hormone (TSH) 4.009 uIU/mL (0.358-3.74) Brief Hospital Course Mr Matthews is a 68 yo w/ PMHx BPH, HLD was brought here by his for evaluation due to a period of confusion 07/06/19 His said he was in the closet working on something and when he was done, he came out, he was acting very confused, was talking with her but he did not make any sense. He did not remember what he was doing earlier. EMS was called, they checked him out and he was doing ok but his blood pressure was high so his brought him here for evaluation. Patient denied any history of DM, HTN OR CVA or CAD. He denied any headache or weakness or numbness anywhere at this time. His said he is doing much better now. He notes he was in the closet spraying RAID bug spray with the door closed. CT head revealed concern for prior right frontal and temporal encephalomalacia, but he and his note no hx of CVA previously, so he was admitted for further care with neurology consultation, pending MRI. Given his NIH of 0 there was no tPA administered Seen by neurology in consultation, based on abnormal baseline CT head findings concerning for old infarct, recommended MRI to further risk stratify patient. His symptoms were resolved and therefore discharged with high intensity statin and ASA. CT head - Moderate sized area of encephalomalacia is seen in the right frontal lobe approximately measuring 4.8 x 5.2 cm. Small area of encephalomalacia in the temporal lobe measuring approximately 4.6 x 2.4 cm. No pathologic extra-axial or intra-axial fluid collection. The ventricles and basal cisterns are within normal limits. No acute intracranial bleed. Orbits are within normal limits. No large scalp hematoma. No suspicious calvarial lesion. Visualized paranasal sinuses and mastoid air cells are clear. 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 Clinically correlate with history. If concern for acute ischemic stroke is high, please consider MRI brain. No acute intracranial bleed. MRI - No acute infarct. No intracranial hemorrhage. No mass effect. Right frontal and anterior temporal encephalomalacia with adjacent gliosis. Mild global brain parenchymal volume loss. Moderate cerebellar volume loss. Additional punctate foci of T/FLAIR hyperintensities within the hemispheric white matter, likely within normal range for age. Imaged orbits are unremarkable. Minimal scattered paranasal sinus mucosal thickening. Mastoid air cells are clear. Impression: 1. No acute intracranial abnormality. 2. Right frontal and anterior temporal lobe encephalomalacia unchanged. 3. Mild cerebral and moderate cerebellar volume loss. A/P: Acute encephalopathy - likely 2/2 organophosphate/bug spray toxicity with his HTN and short lived side effects. Concern for prior CVA noted, discussed with family. Will await MRI results d/w with neurology. ASA and high intensity statin therapy BPH - cont meds HLD - cont statin Elevated blood pressure without diagnosis of hypertension - monitor Right frontal and temporal encephalomalacia - likely prior CVA, d/w him and his . Cont ASA and statin Greater than 135 minutes spent on same day admit and d/c Discharge Information Condition at Discharge: Improved Follow Up: Weeks (1) Disposition/Orders: D/C to Home Scheduled Aspirin (Aspirin) 81 Mg Tab.chew, 81 MG PO DAILY for BLOOD THIN, (Reported) Entered as Reported by: ANIYA GONZALEZ on 07/07/19720 Last Action: New Order on 07/07/19720 by ANIYA GONZALEZ Finasteride (Finasteride) 5 Mg Tablet, 1 TAB PO DAILY for bph, #30 Ref 11 (Reported) Entered as Reported by: BRITTANY FNOTANA on 07/07/191108 Last Taken: Unknown Dose on 06/28/19 Last Action: Continued on 07/07/191116 by VARSHA COLEMAN MD Meloxicam (Meloxicam) 15 Mg Tablet, 1 TAB PO DAILY for arth for 30 Days, #30 Ref 0 (Reported) Entered as Reported by: BRITTANY FNOTANA on 07/07/191108 Last Taken: Unknown Dose on 06/27/19 Last Action: New Order on 07/07/191108 by BRITTANY FONTANA Rosuvastatin Calcium (Crestor) 40 Mg Tablet, 40 MG PO HS for FOR CHOLESTEROL, #30 Ref 0 (Reported) Entered as Reported by: BRITTANY FONTANA on 07/07/191108 Last Taken: Unknown Dose on 07/06/19 Last Action: New Order on 07/07/191108 by BRITTANY FONTANA Tamsulosin Hcl (Flomax) 0.4 Mg Cap.er.24h, 0.4 MG PO DAILY for bph, (Reported) Entered as Reported by: BRITTANY FONTANA on 07/07/191108 Last Taken: Unknown Dose on 07/06/19 Last Action: Continued on 07/07/191116 by VARSHA COLEMAN MD Discontinued Medications [Zocor] , (Reported) Entered as Reported by: ANIYA GONZALEZ on 07/07/19 0721 Last Taken: UNKNOWN on Unknown Date & Time Last Action: Discontinued on 07/07/191108 by VARSHA BOBO MD Jul 07, 2019 11:34
--- NOTE | 2019-07-07 13:14 | PDOC2 ---
CARDIAC CONSULT DATE OF CONSULT Date of Consult DATE: 07/07/19 TIME: 0940 REASON FOR CONSULT Reason for Consult: TIA, HTN, elevated trop REFERRING PHYSICIAN Referring Physician: Nile SOURCE Source: Chart review, Patient HISTORY OF PRESENT ILLNESS HISTORY OF PRESENT ILLNESS This is a pleasant 68 yo male admitted for complains of confusion. He was noted by his yesterday seems to not making any sense to what he was doing and was acting confused. No noted unilateral weakness, SOA, CP and no falls. He did remember getting dizzy at some point but no HAs, no auditory/visual deficits and no vertigo. No nausea or vomiting. He does not take any medications and reported no prior episodes of confusion and has not taken any BP meds. No past hx of CVA, CAD, arrhythmias. 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 PAST MEDICAL HISTORY Cardiovascular: Hyperlipidemia Pulmonary: No pertinent hx CENTRAL NERVOUS SYSTEM: Other (no pertinent history) GI: No pertinent hx Heme/Onc: No pertinent hx Hepatobiliary: Cholelithiasis Musculoskeletal: Osteoarthritis Infectious disease: No pertinent hx ENT: No pertinent hx Renal/: Benign prostatic enlarg. Endocrine: No pertinent hx Dermatology: No pertinent hx PAST SURGICAL HISTORY Past Surgical History: Cholecystectomy, Tonsillectomy FAMILY HISTORY Family History: Hypertension (father) SOCIAL HISTORY Smoke: No ALCOHOL: none Drugs: None Lives: with Family CURRENT MEDICATIONS CURRENT MEDICATIONS Current Medications Medications (Trade) Dose Ordered Sig/Jimmy Route PRN Reason Start Time Stop Time Status Last Admin Dose Admin Aspirin (Benny Aspirin) 325 mg 1X ONCE PO 07/07/19 00:30 07/07/19 00:31 DC 07/07/19 00:48 Metoprolol Tartrate (Lopressor) 25 mg 1X ONCE PO 07/07/19 00:30 07/07/19 00:31 DC 07/07/19 00:50 Finasteride (Proscar) 5 mg DAILY PO 07/07/19 11:30 07/07/19 11:38 Tamsulosin HCl (Flomax) 0.4 mg DAILY PO 07/07/19 11:30 07/07/19 11:38 ALLERGIES ALLERGIES: Coded Allergies: No Known Drug Allergies (Unverified , 07/06/19) ROS Review of System 14 point ROS evaluated with pertinent positives noted per HPI PHYSICAL EXAM General: Alert, Oriented X3, Cooperative, No acute distress HEENT: Atraumatic, Mucous membr. moist/pink Lungs: Clear to auscultation, Normal air movement Heart: Regular rate (SR), Normal S1, Normal S2, No murmurs Abdomen: Soft, No tenderness Extremities: No cyanosis, No edema Skin: No breakdown, No significant lesion Neuro: Normal speech, Sensation intact Psych/Mental Status: Mental status NL, Mood NL MUSCULOSKELETAL: Osteoarthritic changes both hands VITALS/I&O VITALS/I&O: Vital Signs Date Time Temp Pulse Resp B/P (MAP) Pulse Ox O2 Delivery O2 Flow Rate FiO2 07/07/19 11:00 98.4 85 18 151/77 (101) 96 Room Air 98.4 I & O 07/06/19 07/06/19 07/07/19 15:00 23:00 07:00 Intake Total 0 ml Balance 0 ml LABS Lab: Laboratory Tests Test 07/06/19 20:24 07/06/19 20:40 07/06/19 22:50 07/07/19 03:30 Glucose (Fingerstick) 106 mg/dL (70-99) H White Blood Count 8.5 x10^3/uL (4.0-11.0) Red Blood Count 5.25 x10^6/uL (4.30-5.70) Hemoglobin 15.4 g/dL (13.0-17.5) Hematocrit 45.2 % (39.0-53.0) Mean Corpuscular Volume 86 fL (79-100) Mean Corpuscular Hemoglobin 29 pg (25-35) Mean Corpuscular Hemoglobin Concent 34 g/dL (31-37) Red Cell Distribution Width 13.4 % (11.5-14.5) Platelet Count 199 x10^3/uL (140-400) Neutrophils (%) (Auto) 80 % (31-73) H Lymphocytes (%) (Auto) 14 % (24-48) L Monocytes (%) (Auto) 6 % (0-9) Eosinophils (%) (Auto) 1 % (0-3) Basophils (%) (Auto) 1 % (0-3) Neutrophils # (Auto) 6.7 x10^3/uL (1.8-7.7) Lymphocytes # (Auto) 1.2 x10^3/uL (1.0-4.8) Monocytes # (Auto) 0.5 x10^3/uL (0.0-1.1) Eosinophils # (Auto) 0.0 x10^3/uL (0.0-0.7) Basophils # (Auto) 0.1 x10^3/uL (0.0-0.2) Prothrombin Time 12.4 SEC (11.7-14.0) Prothrombin Time INR 1.0 (0.8-1.1) Activated Partial Thromboplast Time 27 SEC (24-38) Sodium Level 136 mmol/L (136-145) Potassium Level 4.2 mmol/L (3.5-5.1) Chloride Level 101 mmol/L (98-107) Carbon Dioxide Level 28 mmol/L (21-32) Anion Gap 7 (6-14) Blood Urea Nitrogen 14 mg/dL (8-26) Creatinine 0.9 mg/dL (0.7-1.3) Estimated GFR (Cockcroft-Gault) 83.9 BUN/Creatinine Ratio 16 (6-20) Glucose Level 115 mg/dL (70-99) H Calcium Level 8.8 mg/dL (8.5-10.1) Magnesium Level 2.0 mg/dL (1.8-2.4) Total Bilirubin 0.4 mg/dL (0.2-1.0) Aspartate Amino Transferase (AST) 35 U/L (15-37) Alanine Aminotransferase (ALT) 57 U/L (16-63) Alkaline Phosphatase 50 U/L (46-116) Troponin I Quantitative 0.124 ng/mL (0.000-0.055) 0.134 ng/mL (0.000-0.055) YY-Kii-Q-Type Natriuretic Peptide 35 pg/mL (0-124) Total Protein 7.0 g/dL (6.4-8.2) Albumin 3.7 g/dL (3.4-5.0) Albumin/Globulin Ratio 1.1 (1.0-1.7) Urine Collection Type Unknown Urine Color Yellow Urine Clarity Clear Urine pH 7.5 Urine Specific [place] 1.010 Urine Protein Negative mg/dL (NEG-TRACE) Urine Glucose (UA) Negative mg/dL (NEG) Urine Ketones (Stick) Negative mg/dL (NEG) Urine Blood Negative (NEG) Urine Nitrite Negative (NEG) Urine Bilirubin Negative (NEG) Urine Urobilinogen Dipstick 0.2 mg/dL (0.2 mg/dL) Urine Leukocyte Esterase Negative (NEG) Urine RBC 0 /HPF (0-2) Urine WBC Occ /HPF (0-4) Urine Bacteria 0 /HPF (0-FEW) Urine Mucus Slight /LPF Urine Opiates Screen Neg (NEG) Urine Methadone Screen Neg (NEG) Urine Barbiturates Neg (NEG) Urine Phencyclidine Screen Neg (NEG) Urine Amphetamine/Methamphetamine Neg (NEG) Urine Benzodiazepines Screen Neg (NEG) Urine Cocaine Screen Neg (NEG) Urine Cannabinoids Screen Neg (NEG) Urine Ethyl Alcohol Neg (NEG) Thyroid Stimulating Hormone (TSH) 4.009 uIU/mL (0.358-3.74) H Test 07/07/19 11:31 Troponin I Quantitative 0.096 ng/mL (0.000-0.055) Laboratory Tests 07/06/19 20:40 Laboratory Tests 07/06/19 20:40 ASSESSMENT/PLAN ASSESSMENT/PLAN 1. HTN encephalopathy vs TIA 2. HTN urgency: unclear what his baseline is 3. Reactive sinus tach: better 4. Mild troponin elevation: peaked at 0.1, no EKG changes and no cardiac symptoms, potentially demand mediated due to uncontrolled HTN 5. HLP Recommendations 1. ASA, metoprolol, and statin 2. Follow up in office and will consider for outpt stress given his risk factors and unclear trop elevation 3. RN to instruct HBPM bid x1 week then daily. 4. TSH, lipids JULIUS BOUCHER APRN Jul 07, 2019 13:13
--- NOTE | 2019-07-07 13:30 | CARD ---
MR#: [id number] Date of Study: 07/07/2019 Ordering Physician: JULIUS BOUCHER, Referring Physician: JULIUS BOUCHER Tech: Carlie Carr TENZIN APPROVED REPORT EXAM: Two-dimensional and M-mode echocardiogram with Doppler and color Doppler. Other Information Quality : Good INDICATION CVA/TIA 2D DIMENSIONS RVDd2.8 (2.9-3.5cm)Left Atrium(2D)3.2 (1.6-4.0cm) IVSd1.4 (0.7-1.1cm)Aortic Root(2D)3.6 (2.0-3.7cm) LVDd4.6 (3.9-5.9cm)LVOT Diameter2.5 (1.8-2.4cm) PWd1.1 (0.7-1.1cm)LVDs2.5 (2.5-4.0cm) FS (%) 30.0 %SV76.2 ml LVEF(%)60.0 (>50%) Aortic Valve AoV Peak Vance.88.4cm/sAoV VTI15.4cm AO Peak GR.3.1mmHgLVOT Peak Vance.97.1cm/s AO Mean GR.2mmHgAVA (VMAX)5.34cm2 KRISS (VTI)5.80cm2 Mitral Valve MV E Tpjidfov69.9cm/sMV DECEL LTFZ315ci MV A Mgedoszd06.1cm/sE/A Ratio0.7 Tricuspid Valve TR P. Cofmzwef683of/sRAP [id number] TR Peak Gr.34xsLeBWJA97caEw Pulmonary Vein S1 Slhrahzi55.0cm/sD2 Lilatxtn50.5cm/s LEFT VENTRICLE The left ventricle is normal size. There is mild asymmetric septal left ventricular hypertrophy. The left ventricular systolic function is normal. The Ejection Fraction is 55-60%. There is normal LV seg mental wall motion. Transmitral Doppler flow pattern is Grade I-abnormal relaxation pattern. RIGHT VENTRICLE The right ventricle is normal size. The right ventricular systolic function is normal. ATRIA The left atrium size is normal. The right atrium size is normal. The interatrial septum is intact wit h no evidence for an atrial septal defect or patent foramen ovale as noted on 2-D or Doppler imaging. AORTIC VALVE The aortic valve is calcified but opens well. Doppler and Color Flow revealed no significant aortic r egurgitation. There is no significant aortic valvular stenosis. MITRAL VALVE The mitral valve is normal in structure and function. There is no evidence of mitral valve prolapse. There is no mitral valve stenosis. Doppler and Color Flow revealed no mitral valve regurgitation note d. TRICUSPID VALVE The tricuspid valve is normal in structure and function. Doppler and Color Flow revealed trace tricus pid regurgitation. The PA pressure was estimated at 20 mmHg. There is no tricuspid valve stenosis. PULMONIC VALVE The pulmonic valve is not well visualized. Doppler and Color Flow revealed no pulmonic valvular regur gitation. There is no pulmonic valvular stenosis. GREAT VESSELS The aortic root is normal in size. The ascending aorta is normal in size. The IVC is normal in size a nd collapses >50% with inspiration. PERICARDIAL EFFUSION There is no evidence of significant pericardial effusion. Critical Notification Critical Value: No <Conclusion> The left ventricular systolic function is normal. The Ejection Fraction is 55-60%. There is normal LV segmental wall motion. Transmitral Doppler flow pattern is Grade I-abnormal relaxation pattern. Doppler and Color Flow revealed trace tricuspid regurgitation. The PA pressure was estimated at 20 mmHg. There is no evidence of significant pericardial effusion. Signed by : Alex Hooks, Electronically Approved : 07/07/2019 13:30:19
[2019-07-07 13:55] LABS: CHOLESTEROL/HDL RATIO 3.8
[2019-07-07 15:00] VITALS: BP 166/90
[2019-07-07] MEDS ORDERED: METO25TA4 PO (15:28)
[2019-07-07] MEDS ORDERED: METOPROLOL TART IMMED RELEASE 25 MG TABLET. PO SCH (21:00)
[2019-07-07] MEDS ORDERED: ATORVASTATIN CALCIUM 40 MG TABLET. PO SCH (21:00)
[2019-07-08] MEDS ORDERED: ASPIRIN ENTERIC COATED 81 MG TABLET.DR. PO SCH (08:00)
== END 2019-07-07 15:35 | disposition home or self-care (01) | DRG 79 ==
LOC: ER 20:01 → 2 SOUTH 07-07 00:05
PROVIDERS: ADMIT Internal Medicine; ATTEND Internal Medicine
DX: I67.4 Hypertensive encephalopathy (principal); E78.00 Pure hypercholesterolemia, unspecified; E78.5 Hyperlipidemia, unspecified; G93.89 Other specified disorders of brain; I10 Essential (primary) hypertension; I16.0 Hypertensive urgency; N40.0 Benign prostatic hyperplasia without lower urinary tract symptoms; R29.700 NIHSS score 0; Z82.49 Family history of ischemic heart disease and other diseases of the circulatory system; Z86.73 Personal history of transient ischemic attack (TIA), and cerebral infarction without residual deficits; Z87.891 Personal history of nicotine dependence; K21.9 Gastro-esophageal reflux disease without esophagitis; M19.90 Unspecified osteoarthritis, unspecified site
CPT/HCPCS: 36415; 70450; 70551; 80053; 80061; 80307; 81001; 82962; 83735; 83880; 84443; 84484; 85025; 85610; 85730; 93005; 93306; G0378